=== PATIENT | male | born 1945 | race Caucasian/White ===

== ENCOUNTER 2017-01-05 07:36 | Day surgery (SDC) | payer MEDICARE, OTHER ==
[~2017-01-05] VITALS: Ht 172.7 cm; Wt 79.4 kg
--- NOTE | ~2017-01-05 | OP ---
Record Of Operation [facility] [address] [place]. 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 PROCEDURES: 1. Microscopic navigation-assisted surgery. 2. Left L4-5, L5-S1 hemilaminotomy, foraminotomy, and partial medial facetectomy. FIRMWARE ARCHITECT: Jonas Villalba. ANESTHESIA: General. BLOOD LOSS: 20 mL. INDICATIONS FOR SURGERY: A 71-year-old male with left hip and leg pain that has been present for several months. It has gotten much worse recently. Pain is worse standing, walking, better with sitting, but never goes away. The pain has been intolerable for the last couple months. Pain is worse in the hip itself but has not responded to any conservative care with time, medication, therapy. The patient brought to surgery with MRI-proven marked lateral recess and foraminal stenosis secondary to ligamentum flavum and facet hypertrophy. The risks, benefits, alternatives, and expectations explained. Consent form has been signed. Also please note, because of the complexity of surgery, the need to identify correct level of surgery intraoperatively, and a desire to carry out the safest most precise dissection, I felt that intraoperative navigation was mandatory. PROCEDURE IN DETAIL: Antibiotic prophylaxis was given. Neurophysiology monitoring leads were inserted. The patient was brought to the operative suite. General anesthetic including endotracheal intubation was administered. He was placed prone on a Jorje spine frame. Bony prominences were carefully padded. Thoracolumbar spine scrubbed with Hibiclens solution. DuraPrep was painted. Sterile drapes applied. A small stab wound was carried out at the right posterior superior iliac spine. A percutaneous pin with navigational frame attached was inserted in PSIS. Intraoperative CT scan with O-arm obtained, CT information used to register the navigational system. With navigational assistance, I identified the L4-5 and L5-S1 level. [place]iskell between the two interlaminar spaces, I carried out a 2 cm skin incision just left of midline. A blunt navigated probe placed through the fascia and muscle, docked initially over the L4-5 interlaminar space. Muscle dilators were inserted followed by placement of a tubular retractor attached to an arm mount table. The microscope was sterilely draped and used Record Of Operation [place] [id number] [facility] [place]. [address] NAME: TOM JIMÉNEZ : 43 STATUS : [facility] PAT#: [id number] AGE: 71 ADM/REG DATE : 01/05/17 MR#: [id number] REPORT SERV DATE: 01/05/17 DICTATED BY: JUAN JOSÉ BURKS DATE: 01/05/17 REPORT STATUS : Draft TRANSCRIBED BY: ENZO DATE: 01/05/17 throughout the remainder of the procedure. With navigational assistance, I identified the amount of lamina of L4 that I wanted to remove in order to reach the cephalad boundary of the disk space. I also determined the amount of medial facet joint to remove in order to reach the lateral aspect of the thecal sac. A 3 mm calvin bur was used to remove approximately 60% to 70% of lamina of L4, approximately 25% of medial facet joint. The hypertrophied ligamentum flavum and facet ligament hypertrophy were debrided with a bur as well as with 2 and 3 mm Kerrison rongeurs. Afterwards, the thecal sac expanded significantly. The disk space was inspected, no herniations were found. The lateral recess completely decompressed. The medial foramen was decompressed. The wounds were irrigated. The retractor was removed. A skin incision translated slightly inferior. The inferior portion of the skin incision was used to place a blunt navigated probe through the fascia and muscle and docked over the interlaminar space of L5-S1. The same identical procedure was then carried out with a hemilaminotomy, foraminotomy, and partial medial facetectomy, and using approximately the same portions of lamina and facet joint removal. Again, there was definitely a lateral recess stenosis and medial foraminal stenosis and afterwards decompression showed no significant impingement. The retractor was removed. The fascial opening was closed with a single interrupted #1 Vicryl suture. The subcutaneous tissue was closed with 2-0 Vicryl sutures, 2-0 vertical mattress nylon suture was used for skin closure. Sterile dressings were applied. The patient awakened, extubated, and taken to recovery room in satisfactory condition having tolerated the procedure well. Sponge, needle, and instrument counts were correct. No intraoperative complications noted. MARLYS/ENZO Juan José Burks D.O. / [id number] CC: Teresita Watson M.D.
[~2017-01-05 07:36] MED LIST: ALEVE220 MG PO; GLUCCHONDR PO; MULTIVITAMI1 PO; VASOTEC10 PO; [UNRECOGNIZED DRUG - OTHER] PO
[2017-01-05 08:34] LABS: HEMATOCRIT 44.6 % (40.0-51.0); HEMOGLOBIN 15.1 g/dL (13.6-17.8)
[2017-01-05 08:43] LABS: BUN (BLOOD UREA NITROGEN) 19 MG/DL (6-23); CALCIUM, SERUM 8.7 MG/DL (8.5-10.4); CHLORIDE, SERUM 110 MMOL/L (96-112); CO2 (CARBON DIOXIDE) 28 MMOL/L (24-34); CREATININE 1.15 MG/DL (0.70-1.30); GFR AFRICAN AMERICAN 73 ML/MIN (>=60); GFR NON AFRICAN AMERICAN 63 ML/MIN (>=60); GLUCOSE, SERUM 101 MG/DL (60-99); POTASSIUM, SERUM 4.6 MMOL/L (3.5-5.3); SODIUM, SERUM 143 MMOL/L (135-148)
== END 2017-01-05 14:58 | disposition home or self-care (01) ==
LOC: SDC 07:36
PROVIDERS: Orthopaedic Surgery Orthopaedic Surgery of the Spine
PROC: 01NB0ZZ Release Lumbar Nerve, Open Approach (ICD-10-PCS; principal; 2017-01-05 09:45)
DX: M48.07 Spinal stenosis, lumbosacral region (principal); I10 Essential (primary) hypertension; Z87.442 Personal history of urinary calculi; Z88.0 Allergy status to penicillin; Z91.048 Other nonmedicinal substance allergy status
CPT/HCPCS: 80048; 85014; 85018; 88304; 88311; 93005; J0690; J2250; J2270; J2405; J2710; J3010